=== PATIENT | male | born 1995 | race Caucasian/White ===

== ENCOUNTER 2020-02-15 21:31 | Emergency (ER) | payer OTHER ==
[~2020-02-15] VITALS: Ht 165.1 cm; Wt 90.3 kg
[2020-02-15 21:40] VITALS: BP 137/59
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
[2020-02-15] MEDS ORDERED: IV RINGERS SOLUTION,LACTATED 1,000 ML IV SCH (22:20)
[2020-02-15] MEDS ORDERED: KETOROLAC 30 MG/ML VIAL. IVP ONE (22:30)
[2020-02-15] MEDS ORDERED: IOHEXOL 300 MG/ML 75 ML VIAL. IV ONE (22:45)
[2020-02-15] MEDS ORDERED: CONTRAST GIVEN MC PRN (22:45)
[2020-02-15 23:07] LABS: BASO % 1 % (0-3); EOS # 0.1 x10^3/uL (0.0-0.7); EOS % 2 % (0-3); HEMATOCRIT 44.2 % (39.0-53.0); HEMOGLOBIN 15.1 g/dL (13.0-17.5); LYMPH # 2.6 x10^3/uL (1.0-4.8); LYMPH % 36 % (24-48); MEAN CORPUSCULAR HEMOGLOBIN 30 pg (25-35); MEAN CORPUSCULAR HGB CONC 34 g/dL (31-37); MEAN CORPUSCULAR VOLUME 86 fL (79-100); MONO # 1.1 x10^3/uL (0.0-1.1); MONO % 15 % (0-9); NEUT # 3.5 x10^3uL (1.8-7.7); NEUT % 47 % (31-73); PLATELET COUNT 237 x10^3/uL (140-400); RED BLOOD COUNT 5.11 x10^6/uL (4.30-5.70); RED CELL DISTRIBUTION WIDTH 12.5 % (11.5-14.5); WHITE BLOOD COUNT 7.4 x10^3/uL (4.0-11.0)
[2020-02-15 23:22] LABS: BARBITURATES NEG (NEG); BENZODIAZEPINES NEG (NEG); CANNABINOIDS NEG (NEG); COCAINE NEG (NEG); METHADONE NEG (NEG); OPIATES NEG (NEG); PHENCYCLIDINE NEG (NEG)
[2020-02-15 23:24] LABS: ANION GAP 11 (6-14); BLOOD UREA NITROGEN 10 mg/dL (8-26); CALCIUM 8.9 mg/dL (8.5-10.1); CARBON DIOXIDE 26 mmol/L (21-32); CHLORIDE 103 mmol/L (98-107); CREATININE 0.9 mg/dL (0.7-1.3); GFR 103.7; GLUCOSE 103 mg/dL (70-99); POTASSIUM 3.2 mmol/L (3.5-5.1); SODIUM 140 mmol/L (136-145)
--- NOTE | 2020-02-15 23:26 | EKG ---
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
[2020-02-15 23:27] LABS: BACTERIA,URINE 0 /HPF (0-FEW); BILIRUBIN,URINE NEG (NEG); CLARITY,URINE CLEAR; COLOR,URINE YELLOW; GLUCOSE,URINE NEG (NEG); NITRITE,URINE NEG (NEG); RBC,URINE 0 /HPF (0-2); SQUAMOUS EPITHELIAL CELL,UR OCC /LPF; UROBILINOGEN,URINE 0.2 mg/dL (0.2 mg/dL); WBC,URINE OCC /HPF (0-4)
[2020-02-15 23:32] LABS: AMPHETAMINE/METHAMPHETAMINE NEG (NEG)
[2020-02-15 23:38] LABS: ALBUMIN 4.3 g/dL (3.4-5.0); ALK PHOS 74 U/L (46-116); ALT (SGPT) 51 U/L (16-63); AST (SGOT) 26 U/L (15-37); DIRECT BILIRUBIN 0.1 mg/dL (0.0-0.2); TOTAL BILIRUBIN 0.5 mg/dL (0.2-1.0); TOTAL PROTEIN 7.2 g/dL (6.4-8.2)
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
[2020-02-16] MEDS ORDERED: CYCL-331 PO (01:58)
[2020-02-16] MEDS ORDERED: HYDR-1179 PO (01:58)
== END 2020-02-16 02:44 | disposition home or self-care (01) ==
LOC: ER 21:31
DX: S83.91XA Sprain of unspecified site of right knee, initial encounter (principal); S23.3XXA Sprain of ligaments of thoracic spine, initial encounter; S73.102A Unspecified sprain of left hip, initial encounter; S30.1XXA Contusion of abdominal wall, initial encounter; S20.219A Contusion of unspecified front wall of thorax, initial encounter; E87.6 Hypokalemia; Z88.8 Allergy status to other drugs, medicaments and biological substances; V49.9XXA Car occupant (driver) (passenger) injured in unspecified traffic accident, initial encounter; Y93.89 Activity, other specified; Y92.488 Other paved roadways as the place of occurrence of the external cause; Y99.8 Other external cause status
CPT/HCPCS: 36415; 71046; 71260; 72128; 72131; 73502; 73564; 74177; 80048; 80076; 80307; 81001; 83880; 85025; 85610; 85730; 93005; 96374; 99285; J1885; J7120; Q9967

== ENCOUNTER 2020-04-09 17:21 | Emergency (ER) | payer BC, OTHER ==
[~2020-04-09] VITALS: Ht 165.1 cm; Wt 90.3 kg
[~2020-04-09 17:21] MED LIST: CYCL-331 PO; HYDR-1179 PO
[2020-04-09 17:37] VITALS: BP 147/65
--- NOTE | 2020-04-09 17:54 | RAD ---
EXAM: Left foot, 3 views. HISTORY: Pain. COMPARISON: None. FINDINGS: 3 views of the left foot are obtained. There is no fracture, dislocation or subluxation. There is a small bone island within the calcaneus. IMPRESSION: No acute osseous finding. Electronically signed by: Caroline Mayen MD (04/09/2020 5:52 PM) [facility]
--- NOTE | 2020-04-09 17:59 | PHYS DOC ---
Past History Past Medical History: Anxiety, Depression, Migraines, Other Additional Past Medical Histor: scoliosis, PTSD, ADD, insomnia Past Surgical History: Tonsillectomy Additional Past Surgical Histo: ACL reattachment R knee Alcohol Use: None General Adult EDM: Chief Complaint: LOWER EXT PAIN HPI: HPI: 24-year-old male presents with left foot pain. The patient works for [employer] and walks around a lot. Over the last few days he has had increasing pain in his foot. It is most painful when he first wakes up and gets a little better as he gets to moving around. It then gets worse again later on in the day. He has tried icing it and it helps a little bit. He is not any particular exercises. He has not tried regular NSAID use. His shoes are only couple months old. He wears special inserts because he has high arches. He denies any trauma or specific injury. Review of Systems: Review of Systems: Constitutional: Denies fever or chills Eyes: Denies change in visual acuity HENT: Denies nasal congestion or sore throat Respiratory: Denies cough or shortness of breath Cardiovascular: Denies chest pain or edema GI: Denies abdominal pain, nausea, vomiting, bloody stools or diarrhea : Denies dysuria Musculoskeletal: Denies back pain or joint pain Integument: Denies rash Neurologic: Denies headache, focal weakness or sensory changes Endocrine: Denies polyuria or polydipsia Lymphatic: Denies swollen glands Psychiatric: Denies depression or anxiety Heart Score: Risk Factors: Risk Factors: DM, Current or recent (<one month) smoker, HTN, HLP, family history of CAD, obesity. Risk Scores: Score 0 - 3: 2.5% MACE over next 6 weeks - Discharge Home Score 4 - 6: 20.3% MACE over next 6 weeks - Admit for Clinical Observation Score 7 - 10: 72.7% MACE over next 6 weeks - Early Invasive Strategies Allergies: Allergies: Allergies Coded Allergies Type Severity Reaction Last Updated Verified prednisone Allergy Unknown 02/15/20 Yes Physical Exam: PE: Constitutional: Well developed, well nourished, no acute distress, non-toxic appearance. [] HENT: Normocephalic, atraumatic, bilateral external ears normal, oropharynx moist, no oral exudates, nose normal. [] Eyes: PERRLA, EOMI, conjunctiva normal, no discharge. [] Neck: Normal range of motion, no tenderness, supple, no stridor. [] Cardiovascular:Heart rate regular rhythm, no murmur [] Lungs & Thorax: Bilateral breath sounds clear to auscultation [] Abdomen: Bowel sounds normal, soft, no tenderness, no masses, no pulsatile masses. [] Skin: Warm, dry, no erythema, no rash. [] Back: No tenderness, no CVA tenderness. [] Extremities: Tenderness over the mid plantar fascia of the left foot, no e cchymosis or obvious deformity. [] Neurologic: Alert and oriented X 3, normal motor function, normal sensory function, no focal deficits noted. [] Psychologic: Affect normal, judgement normal, mood normal. [] Current Patient Data: Vital Signs: Vital Signs Date Time Temp Pulse Resp B/P (MAP) Pulse Ox O2 Delivery O2 Flow Rate FiO2 04/09/20 17:37 97.8 70 147/65 (92) 98 04/09/20 17:33 14 Room Air EKG: EKG: [] Radiology/Procedures: Radiology/Procedures: [] Impressions: EXAM: Left foot, 3 views. HISTORY: Pain. COMPARISON: None. FINDINGS: 3 views of the left foot are obtained. There is no fracture, dislocation or subluxation. There is a small bone island within the calcaneus. IMPRESSION: No acute osseous finding. Electronically signed by: Caroline Mayen MD (04/09/2020 5:52 PM) [facility] DICTATED AND SIGNED BY: CAROLINE MAYEN MD DATE: 04/09/201751 CC: ADALBERTO KIM; LOUIE BELL DO ~ Course & Med Decision Making: Course & Med Decision Making Pertinent Labs and Imaging studies reviewed. (See chart for details) Patient's pain is mostly over the upper midfoot. This could be a midfoot strain but I suspect he also has some acute plantar fasciitis. I have advised stretching exercises, NSAIDs, and rest when available. His foot x-ray is negative for fracture or other significant acute findings. He is stable for discharge at this time. [] Dragon Disclaimer: Dragon Disclaimer: This electronic medical record was generated, in whole or in part, using a voice recognition dictation system. Departure Departure: Impression: Primary Impression: Strain of foot, left Qualified Codes: S96.912A - Strain of unspecified muscle and tendon at ankle and foot level, left foot, initial encounter Disposition: 01 HOME/RESIDENCE PRIOR TO ADM Condition: STABLE Referrals: ADALBERTO KIM (PCP) Patient Instructions: Plantar Fasciitis (Heel Spur Syndrome) with Rehab- [facility] Justification of Admission: Justification of Admission: Justification of Admission Dx: N/A LOUIE BELL DO Apr 09, 2020 17:59
== END 2020-04-09 18:06 | disposition home or self-care (01) ==
LOC: ER 17:21
DX: S96.912A Strain of unspecified muscle and tendon at ankle and foot level, left foot, initial encounter (principal); G43.909 Migraine, unspecified, not intractable, without status migrainosus; Z88.8 Allergy status to other drugs, medicaments and biological substances; X50.9XXA Other and unspecified overexertion or strenuous movements or postures, initial encounter; Y93.89 Activity, other specified; Y92.89 Other specified places as the place of occurrence of the external cause; Y99.0 Civilian activity done for income or pay
CPT/HCPCS: 73630; 99283